=== PATIENT | female | born 1975 | race Caucasian/White ===

== ENCOUNTER 2016-09-14 14:36 | Emergency (ER) | payer MEDICAID, OTHER ==
[2016-09-14 15:01] VITALS: BP 131/82; PULSE 88; RESP 16; TEMP 98.4; O2SAT 96
--- NOTE | 2016-09-14 15:29 | UCPHY ---
[id number] 4d 09/14/16 15:29 HPI/ROS: HPI: 41-year-old female presents to urgent care with chief concern nasal congestion, cough. Symptoms onset over the past 3 days. Denies fever, chills, facial or tooth pain, dysphagia, shortness of breath, chest pain, abdominal pain , nausea, vomiting, diarrhea. No history of asthma or pneumonia. Did not get a flu shot this year. Up-to-date with immunizations. ROS:10 point review of systems is negative other than as stated in HPI (Jannet Sutton) Past Medical/Surgical History: Declines (Jannet Sutton) Social History: No flu shot this year. (Jannet Sutton) Physical Exam: The vital signs stable, reviewed by me General: Awake, alert, calm, cooperative. No acute distress. Head: Atraumatic. EENT: Conjuctiva mildly injected. TMs intact, without redness or bulging. Nasal mucosa is erythematous with moderate clear discharge. Pharynx mildly erythematous. Uvula midline. No tonsillar abscess or exudates. No frontal or maxillary tenderness to percussion. Respiratory: Breathing unlabored. Lungs clear to auscultation bilaterally. No accessory muscle use. CV: Heart rate regular. S1-S2 present. No murmur. GI: Abdomen soft, nontender. Bowel sounds positive x4 quadrants. : Deferred Skin: Warm, dry, intact. No rashes present. Capillary refill brisk. Musculoskeletal: Full ROM all extremities. Neuro: Alert oriented x3. Strength equal in all 4 extremities. (Jannet Sutton) Constitutional: Initial Vital Signs Temperature (C) 36.9 C 09/14/16 14:59 Heart Rate 88 09/14/16 14:59 Respiratory Rate 16 09/14/16 14:59 Blood Pressure 131/82 H 09/14/16 14:59 O2 Sat (%) 96 09/14/16 14:59 O2 Delivery Mode Room Air Allergies/Adverse Reactions: Penicillins Allergy (Severe, Verified 01/04/16 15:45) Itching iodine Allergy (Intermediate, Verified 01/04/16 15:45) Itching Home Medications: Medication Instructions Recorded NK [No Known Home Meds] 09/14/16 Medical Decision Making ED Course/Re-evaluation: Afebrile nontoxic 41-year-old female presents to urgent care with symptoms of URI. Influenza swab is negative. She has no shortness of breath, no chest pain. Lungs are clear to auscultation bilaterally. (Jannet Sutton) I did not see this patient while she was in the in the urgent care. However her care was discussed with the nurse practitioner while the patient was in the department. I agree with treatment plan and management (Trent Chavez) Differential Diagnosis: Differential includes but is not limited to viral URI including influenza, bronchitis, pneumonia, reactive airway disease, sinusitis (Jannet Sutton) - Data Points Laboratory Results: 09/14/16 15:05 Influenza Typ A,B (DFA) NEGATIVE FOR FLU (NEGATIVE) Departure - Departure Disposition: Home, Routine, Self-Care Clinical Impression: Upper respiratory infection Condition: Good Instructions: Upper Respiratory Infection (ED) Additional Instructions: Plan: Flu swab negative Drink plenty of fluids. Rest. Use Flonase (nasal steroid) 2 puffs in each nostril first thing in the morning while symptoms persist. You may use Tylenol or Ibuprofen for fever and pain control. Use saline spray or saline irrigation to each nostril twice daily-morning and evening. For sore throat, gargle with warm salt water three times daily. Return to Urgent Care or ER if you develop chest pain, difficulty breathing, or difficulty swallowing. Follow up as directed--tell the office you are an "ER follow up appointment when you call. Return here promptly for worsening symptoms such as facial/tooth pain, chest pain, shortness of breath, unremitting fever, nausea, vomiting, difficulty swallowing. Referrals: [place] STATE,. [Primary Care Provider] - As per Instructions - PQRS PQRS Measurement: Not applicable (Jannet Sutton)
== END 2016-09-14 16:13 | disposition home or self-care (01) ==
LOC: CED 14:36
DX: J06.9 Acute upper respiratory infection, unspecified (principal); Z88.0 Allergy status to penicillin
CPT/HCPCS: 87400-PO; G0463-PO

== ENCOUNTER 2018-11-16 23:08 | Emergency (ER) | payer MEDICAID, OTHER ==
--- NOTE | 2018-11-16 23:16 | EDPHY ---
H & P Time Seen by Provider: 11/16/18 23:16 HPI/ROS: CHIEF COMPLAINT: Right Arm discomfort and chest ache HISTORY OF PRESENT ILLNESS: Right arm discomfort today with episodic chest ache this past week Medically stable healthy 43-year-old female with borderline diabetes with the A1 season the 5.5-5.9 range. She 1st noted onset of a vague central chest ache through this past week. It was not related to exertion or particular stress. In fact, she tried meditating at 1 point and it would not go away. However while it was there certainly every day and lasted hours at a time there were times when she would not notice it as was so minimal due to the distractions of daily activity. The chest discomfort remained in the central chest and was not progressive with respect to sensitivity or stress or severity or radiation, as there was none. This is been going on for approximately 5-7 days, present most the day but hardly noticeable at times. It is not pleuritic in nature. She has had no shortness of breath or difficulty breathing or respiratory symptoms such as cough or wheeze or phlegm. Furthermore there has been no nausea or vomiting. She has not noted exertional fatigue in the last month. In fact she really did have a today at all. However this morning around 10:00 a.m. While doing some cleanup for burst pipe in the basement she noted an achiness in anterior aspect of the right wrist area and to a lesser extent the back of the triceps. This was as they started the clean up the basement, so she started to favor the in not use the right wrist nor upper extremity. Later in the afternoon she took arrived with her 7-year-old on a flat level without any heavy exertion noting no worsening symptoms nor aggravating conditions in terms of the position of the bike such as turning her head or neck. Furthermore she did not have any chest discomfort as noted below through the course of today. This discomfort continued the rest the day. At approximately 9:30 p.m. When she was putting her son to bed she went to lay down in the bed to comfort him At that time she felt oddly fatigue for her and so she chose to go to bed however she cannot get a comfortable position as the wrist and to a lesser extent the triceps area was so bothersome while she did look for an anti- inflammatory she is not taking any. The specifics regarding the arm discomfort R that it began around 10:00 a.m. Today, it has been continuous, located mostly in the right wrist but with lesser extent over the right trapezius and into the right triceps. Is an achy like quality moderately severe and not worse with position such as when she was moving, changing clothes, cooking dinner, as well as riding the bike. At this point in time during the initial evaluation it was a 3 or 4 in severity As to the chest discomfort today she did have a mild ache today where she would describe it as significantly medusa from that of the week. Cardiac Risk Factors: DM: Prediabetic with a 1 sees in the 5.5-5.9 range recently " her best" HTN: No High Chol: No Smoking: No Family History: No early-onset coronary disease however father age 70 has noted to have week ventricles and congestive heart failure to the patient of unknown etiology. However she does not believe he has been told that he has coronary disease Obesity: No SLE type illenss: No HIV: No PE/DVT risk factors Prior DVT/PE: No Immobilization/Bed Rest No Splint/Cast: No Surgery, recently: No Family history of hypercoaguable syndrome: No Unilateral leg swelling: No Obesity: No Regarding aortic dissection there is no personal history of valvular disease or HTN; nor family history of collagen vascular disease. REVIEW OF SYSTEMS: Constitutional: No fever, no chills. Eyes: No discharge ENT: No sore throat. Cardiovascular: see above Respiratory: see above Gastrointestinal: No nausea, vomiting, diarrhea or abdominal pain. Genitourinary: No hematuria or frequency. Musculoskeletal: No back pain. Skin: No rashes. Neurological: No headache. A 10 system review of systems was performed and is negative except for the noted findings in the HPI. Source: Patient Exam Limitations: No limitations - Personal History LMP (Females 10-55): 15-21 Days Ago (She is mental cycles every 3 weeks and would anticipate the next 1 to occur in the next 1-2 days. She has had her tubes tied, she does not believe she is .) Tetanus Vaccine Date: 2015 - Medical/Surgical History Hx Asthma: No Hx Chronic Respiratory Disease: No Hx Diabetes: No Hx Cardiac Disease: No Hx Renal Disease: No Hx Cirrhosis: No Hx Alcoholism: No Hx HIV/AIDS: No Hx Splenectomy or Spleen Trauma: No Other PMH: PMH:PRE-DIABETIC, UTIs WITH URETHRAL DIALATION PROCEDURE,HELP SYNDROME WITH . BTL. PSH: CSECT X 3 - Family History Significant Family History: Heart disease (Father diagnosed with weak ventricles in the setting of CHF this past summer, though not told of heart blockages or coronary artery disease, to her knowledge.) - Social History Smoking Status: Never smoked Alcohol Use: None Drug Use: None - Physical Exam Exam: General Appearance: Alert, no distress. Afebrile. Normal phonation. No respiratory distress. Eyes: Pupils equal and round no pallor or injection. No icterus ENT, Mouth: Mucous membranes moist Pharynx without erythema or exudate. TM Clear. Neck: No adenopathy. Supple. No JVD. Trachea in midline. Respiratory: There are no retractions, lungs are clear to auscultation. Chest wall: The anterior costochondral cartilages that the sternum are sensitive as if she has been working out though do not truly repeat does the symptoms of the chest as well as the arm. No crepitus. Cardiovascular: Regular rate and rhythm, without murmur Abdomen: Soft and nontender, no masses, bowel sounds normal. Femoral pulses equal. Neurological: Ox3. No motor weakness. Sensation intact. Gait nl. Triceps reflex 2+, biceps trachea is 2+. No signs of triceps or biceps weakness or flexion or extension of the wrist. Spurling test is positive on the right as it recreates and exacerbates symptoms in the wrist which makes ago into tingling into the right thumb. Axial loading does not initiate or exacerbate the discomfort. Skin: Warm and dry, no rashes. Musculoskeletal: No joint swelling. Extremities: No edema. Homans sign negative. No cords. Psychiatric: Normal affect. Patient is oriented X 3. There is no agitation Constitutional: Initial Vital Signs Temperature (C) 37.0 C 11/16/18 23:16 Heart Rate 98 11/16/18 23:16 Respiratory Rate 16 11/16/18 23:16 Blood Pressure 134/90 H 11/16/18 23:16 O2 Sat (%) 100 11/16/18 23:16 O2 Delivery Mode Room Air Allergies/Adverse Reactions: Penicillins Allergy (Severe, Verified 11/16/18 23:15) Itching iodine Allergy (Intermediate, Verified 11/16/18 23:15) Itching Home Medications: Medication Instructions Recorded Aspirin [Aspirin 81mg (*)] 81 mg PO DAILY #30 tab 11/17/18 Ibuprofen [Motrin (*)] 600 mg PO TID #21 tab 11/17/18 Medical Decision Making - Diagnostics EKG Interpretation: EKG: Interpreted by me contemporaneously. Rhythm: Normal sinus rhythm, the RI interval is 0.206 indicative of a first- degree heart block Heart rate 93 QTc 454 QRS: LBBB STT segment: [Normal Waves: Normal Q waves none Summary: Normal EKG with normal sinus rhythm and first-degree heart block without ischemic changes EKG: #2 Interpreted by me contemporaneously. Rhythm: Normal sinus rhythm though P are prolonged at 231., indicative of a first-degree block Heart rate 78 QTc 437 QRS: normal STT segment: normal T Waves: Normal Q waves none Summary: Normal Ekg, with sinus rhythm with first-degree block. No ischemic changes Imaging Results: Chest x-ray: Two view chest. Interpreted by me, contemporaneously. Films viewed by me on the PACS system. Normal mediastinum. Normal lung hood. No effusions. Normal chest. ED Course/Re-evaluation: Patient was examined and test were performed as well as sending for chest x- ray. We had a lengthy discussion regarding heart score as follows: Heart Score: H = Hx Mod 1 E = EKG Nl 0 A = Age <45 0 R Risk Factors HTN No Smoking No DM maybe, Pre DM Family Hx Father with CHF High Chol No Obesity No 1-2 1 T = Troponin Not detected 0 Results: 0-3 1.7% Risk, thus low risk chest pain. Laboratory studies were performed which included: Chest x-ray negative EKG negative CBC negative Electrolytes-preserved renal function Troponin negative Thus her heart score is 2 at most given equivocal risk factors and 1 for the history. Furthermore, during the physical exam as noted above the Spurling test is cause some intensification of the discomfort in the right arm leading to the right thumb. Nonetheless cervical radiculopathy would not explain her chest discomfort that she has had all week again as noted in history. Pulmonary embolus is unlikely as evaluated by the Perc Score = 0: Age > 50 no HR > 100 no O2 Sat RA < 95% no Hx of DVT/PE no Trauma or Surgery, recent no Hemoptysis no Estrogen Rx no Unilateral leg swelling no So this would be considered low risk chest discomfort with arm symptoms. We have discussed the prospect of her come in for further evaluation versus outpatient evaluation. She has opted for the latter as long as her follow-up troponin at 3:00 a.m. Is indeed negative. 0340: Recheck. The odd sensation that precipitated the right thumb by way of the Spurling Test has not resolved. Further the wrist does not feel any better after her ibuprofen. However, she does have chest wall sensitivity that is somewhat reproduces the achiness that she is experiencing. Furthermore when talking with her it is evident that indeed she has been doing some head stands as well as some repetitive movements with the right wrist whereby she was doing some painting of the window trim in the sun room this past week. Granted, it did not bother her until later such as today. Today while the wrist is achy I cannot find any point tenderness further there is no point of range of motion sensitivity that reproduces the discomfort. Nonetheless her heart score is 2, she has a negative Perc Score. The likelihood of this being heart disease is rather low. We discussed that nature in length with the patient using shared decision making and she has opted for outpatient management. However for directly to Cardiology as her PCP is being changed currently and she is unclear as to whether she will actually be able to be seen this week as she has yet to establish a formal relationship with someone else in the practice. Differential Diagnosis: Differential diagnosis includes but is not limited to the following: ACS, myocardial infarction, pneumothorax, pleurisy, pulmonary embolus, CHF, Pneumonia, bronchospasm, Asthma, anxiety, muscle strain, Acute Degenerative Disc , Disc Herniation. - Data Points Medications Given: Discontinued Medications Aspirin (Aspirin) 324 mg PO EDNOW ONE Stop: 11/17/18 00:33 Last Admin: 11/17/18 00:34 Dose: 324 mg Aspirin (Aspirin) 324 mg PO EDNOW ONE Stop: 11/17/18 00:40 Last Admin: 11/17/18 00:56 Dose: 324 mg Ibuprofen (Motrin) 600 mg PO EDNOW ONE Stop: 11/17/18 00:40 Last Admin: 11/17/18 00:56 Dose: 600 mg Point of Care Test Results: CBC CBC Collection Date 11/16/18 CBC Collection Time 23:25 WBC 5.53 RBC 4.49 HGB 12.9 HCT 38.6 PLT 210 Neut # 3 Neut 54.2 LYMPH # 1.87 LYMPH 33.8 MCV 86 Chemistry 11/17/18 11/16/18 11/16/18 03:40 23:32 23:32 POC Sodium 138 mEq/L mEq/L (135-145) POC Potassium 3.6 mEq/L mEq/L (3.3-5.0) POC Chloride 106.0 mEq/L mEq/L (97-110) POC Total CO2 28 mEq/L mEq/L (22-31) POC BUN 9 mg/dL mg/dL (7-23) POC Creatinine 0.8 mg/dL mg/dL (0.6-1.0) POC Glucose 117 mg/dL H mg/dL (70-100) POC Calcium 9.2 mg/dL mg/dL (8.5-10.4) POC Troponin I 0.00 ng/mL ng/mL 0.00 ng/mL ng/mL (0.00-0.08) (0.00-0.08) Departure - Departure Disposition: Home, Routine, Self-Care Clinical Impression: Chest pain, Arm pain Condition: Good Instructions: Chest Pain (ED), Cervical Radiculopathy (ED) Additional Instructions: While your seen in the ER, is crucial you seek follow-up with family physician or Cardiology. We have initiated ED cardiology referral on her behalf. Also, if her symptoms get worse you need to come back to the ER In the interim medications to include: Ibuprofen 600 mg three times daily Aspirin 81 mg daily Also, in the interim is crucial that she avoid any sort of muscular or exercised might aggravate your chest in case this is a muscular disorder. Thereby, you're not lift anything more than 10 lb, you're not allowed to do calisthenics, exercise, yoga or stretching. You may do some casual walking such as walking the dog, but nothing that would exert you to the point of shortness of breath or sweating. Referrals: Patient,NotPresent [Primary Care Provider] - As per Instructions Prescriptions: Aspirin [Aspirin 81mg (*)] 81 mg PO DAILY #30 tab Ibuprofen [Motrin (*)] 600 mg PO TID #21 tab
--- NOTE | 2018-11-17 00:28 | CPEKG ---
Test Reason : OPEN Blood Pressure : / mmHG Vent. Rate : 093 BPM Atrial Rate : 093 BPM P-R Int : 206 ms QRS Dur : 075 ms QT Int : 365 ms P-R-T Axes : 055 060 032 degrees QTc Int : 454 ms Sinus rhythm Prolonged MO interval Confirmed by [facility] ([id number]) on 11/17/2018 12:27:43 AM Referred By: [facility] Confirmed By:[facility]
[2018-11-17] MEDS ORDERED: ASPIRIN 81 MG CHEWABLE TAB PO ONE ×2 (00:32→00:39)
[2018-11-17] MEDS ORDERED: IBUPROFEN 600 MG TAB PO ONE (00:39)
[2018-11-17 04:22] VITALS: BP 105/82
--- NOTE | 2018-11-17 04:23 | CPEKG ---
Test Reason : OPEN Blood Pressure : / mmHG Vent. Rate : 075 BPM Atrial Rate : 074 BPM P-R Int : 238 ms QRS Dur : 080 ms QT Int : 375 ms P-R-T Axes : 047 046 030 degrees QTc Int : 419 ms Sinus rhythm Prolonged NC interval Confirmed by [facility] ([id number]) on 11/17/2018 4:22:39 AM Referred By: [facility] Confirmed By:[facility]
== END 2018-11-17 04:15 | disposition home or self-care (01) ==
LOC: CED 23:08
DX: R07.9 Chest pain, unspecified (principal); M79.601 Pain in right arm
CPT/HCPCS: 71046-PO; 80048-ER; 84484-ER; 85025-QW-ER; 99285-ER